=== PATIENT | male | born 1960 | race Caucasian/White ===

== ENCOUNTER 2016-10-30 03:38 | Emergency (ER) | payer OTHER ==
[~2016-10-30] VITALS: Ht 188 cm; Wt 124.7 kg
[2016-10-30 03:46] VITALS: BP 76/36
[2016-10-30] MEDS ORDERED: SODIUM BICARBONATE 8.4% INJ 50ML SYRINGE IV ONE (10:43)
[2016-10-30] MEDS ORDERED: NALOXONE HCL 1MG/ML 2ML SYRINGE IV ONE (10:43)
[2016-10-30] MEDS ORDERED: AMIODARONE HCL (50 MG/ ML) 3 ML VIAL IV ONE (10:43)
[2016-10-30] MEDS ORDERED: EPINEPHrine HCL 1 MG/10 ML SYRG IV ONE (10:43)
== END 2016-10-30 12:56 | disposition expired ==
LOC: EDSEX 03:41 → ER 03:41
DX: I46.9 Cardiac arrest, cause unspecified (principal); E11.9 Type 2 diabetes mellitus without complications; I10 Essential (primary) hypertension
CPT/HCPCS: 31500; 82962; 99291; J0171; J0282; J2310